=== PATIENT | female | born 1985 | race Caucasian/White ===

== ENCOUNTER → 2017-12-16 | Outpatient (CLI) | payer OTHER ==
[2017-12-16 12:58] LABS: HCT 33.4 % (34.0-46.0); HGB 11.5 gm/dL (11.4-16.0); MCH 28.3 pg (25.0-35.0); MCHC 34.6 g/dL (31.0-37.0); MCV 81.8 fL (80.0-100.0); Mean Platelet Volume 7.3; Platelet Count 241 k/uL (150-450); RBC 4.09 m/uL (3.80-5.40); WBC 8.4 k/uL (3.8-10.6)
[2017-12-16 13:12] LABS: Glucose 72 mg/dL (74-99)
--- NOTE | 2017-12-16 16:05 | US ---
EXAMINATION TYPE: Transabdominal DATE OF EXAM: 10/29/17 COMPARISON: NONE CLINICAL HISTORY: 32-year-old female Z36 CONFIRM DATES. Dates. No cramping or spotting. EXAM PERFORMED: Transabdominal (TA) FINDINGS: EXAM MEASUREMENTS: GESTATIONAL AGE / DATING Dates by LMP: (11 weeks/3 days) EDC: 07/04/2018 Dates by Current Scan for: (11 weeks/5 days) EDC: 07/02/2018 MATERNAL ANATOMY Uterus: 13.2 x 8.6 x 8.9 cm Right Ovary: 2.9 x 2.4 x 1.6 cm Left Ovary: 2.7 x 1.5 x 1.6 cm Post CDS / Adnexa: no free fluid Presence of free fluid: no Presence of corpus luteal cyst: right ovarian hypoechoic lesion = 1.5 x 1.3 x 1.2 cm Presence of subchorionic bleed: no GESTATION / SURVEY CRL: 5.0 cm (11 weeks/5 days) MSD: seen, not measured Yolk Sac (normal less than 6mm): 4.9 mm Heart Rate: 146 bpm Rhythm: Normal IUP: Viable IUP Nuchal Translucency 10-14wks (normal less than 3mm): 1 mm Date of LMP: 09/27/2017, Beta HcG (if available): Not available at this time Single live IUP measuring 11 weeks 5 days. IMPRESSION: 1. Single live intrauterine with estimated gestational age of 11 weeks 3 days by LMP. [facility] ultrasound biometry is concordant (11 weeks 5 days) by crown-rump length measurements. 2. Complete survey recommended at 18-20 weeks.
== END | disposition home or self-care (01) ==
LOC: RADUSWWP 12:27
PROVIDERS: ATTEND Obstetrics & Gynecology
DX: Z36.9 Encounter for antenatal screening, unspecified (principal)
CPT/HCPCS: 76801; 76813; 82565; 82947; 85027; 86762; 86780; 86850; 86900; 86901; 87340

== ENCOUNTER 2018-06-21 07:39 | Outpatient (CLI) | payer OTHER ==
[2018-06-21 10:35] VITALS: BP 116/72; PULSE 82; RESP 18; TEMP 97.5
--- NOTE | 2018-06-21 11:37 | P.MSEPDOC ---
Presenting Problems - Arrival Data Date of Arrival on Unit: 06/21/18 Time of Arrival on Unit: 07:39 Mode of Transport: Ambulatory - Complaint OB-Reason for Admission/Chief Complaint: Possible Onset of Labor Comment: contractions every 2-3 min, onset Medical History - Information : 5 Para: 3 Term: 3 : 0 Abortions: Spontaneous or Elective: 0 Number of Living Children: 3 - Gestational Age Gestational Age by SADIE (wks/days): 38 Weeks and 1 Days Review of Systems - Review of Systems Constitutional: No problems Breast: No problems ENT: No problems Cardiovascular: No problems Respiratory: No problems Gastrointestinal: No problems Genitourinary: No problems Musculoskeletal: No problems Neurological: No problems Skin: No problems Vital Signs - Temperature Temperature: 97.5 F Temperature Source: Temporal Artery Scan - Pulse Right Pulse Oximetery Pulse Rate: 82 Pulse Assessment Method: Pulse Oximetry - Respirations Respiratory Rate: 18 Oxygen Delivery Method: Room Air O2 Sat by Pulse Oximetry: 100 - Blood Pressure Right Arm Blood Pressure: 116/72 Blood Pressure Mean: 86 Blood Pressure Source: Automatic Cuff Medical Screen Scoring (Pre) - Cervical Exam Dilation: 1-3 cm = 1 Effacement: More than 50% = 2 Membranes: Intact - Uterine Contractions Frequency: > or = 36 weeks =2 Duration: > 40 seconds = 2 Intensity: N/A - Maternal Vital Signs Maternal Temperature: N/A Maternal Blood Pressure: N/A Signs of Preeclampsia: N/A Maternal Respirations: N/A - Pain Assessment Pain Location and Character: Abdomen Pain Scale Used: Numeric (1 - 10) Pain Intensity: 3 Pain Management Goal: 3 Pain Description: *Acute, Cramping Pain Radiation Location: none Pain Frequency: Intermittent Pain Duration: 9 Pain Duration Units: Hours Pain Behavior: Vocalization Effects of Pain: none Pain Aggravating Factors: Changing Position Pharmacological Interventions: Discuss Pain Med Options Non-Pharmacological Interventions: Reduce Environmental Stimuli - Maternal Trauma Maternal Trauma: N/A - Assessment Baseline FHR: 115 Heart Rate - NICHD Category: Category I (Normal) = 0 NST: Reactive Position: N/A Station: N/A - Total Score Total Score (Pre): 7 - Level of Risk Level of Risk: Medium (6-9) Physician Notification (Pre) - Physician Notified Physician Notified Date: 06/21/18 Physician Notified Time: 09:40 Physician/Practitioner Notifed:: Dr Hernandez Spoke With: Dr Hernandez New Order Received: Yes - Notification Comment Comment: rechecked pts cervix after an hour, cervix remains the same, pt stayed for an additional hour and cervix still remains the same. pt discharged home with instructions to return if contractions become stronger. Pt verbalizes understanding of all instructions. Disposition - Disposition OB Disposition: Discharge to home Discharge Date: 06/21/18 Discharge Time: 10:20 I agree with the RN Medical Screening Exam: Yes Risk & Benefit of care provided described in d/c instruction: Yes Diagnosis: FALSE LABOR AT OR AFTER 37 COMPLETED WEEKS OF GESTATION
== END 2018-06-21 10:20 | disposition home or self-care (01) ==
LOC: FBPOP 07:39
PROVIDERS: ATTEND Obstetrics & Gynecology
DX: O47.1 False labor at or after 37 completed weeks of gestation (principal); Z3A.38 38 weeks gestation of pregnancy
CPT/HCPCS: 59025; G0463; 99213

== ENCOUNTER 2018-06-30 05:47 | Inpatient (IN) | payer OTHER ==
[2018-06-30] MEDS ORDERED: OXYTOCIN 10 UNIT/ML 1 ML VIAL IM PRN (05:57)
[2018-06-30] MEDS ORDERED: METHYLERGONOVINE 0.2 MG/ML 1 ML AMP IM PRN (05:57)
[2018-06-30] MEDS ORDERED: TERBUTALINE 1 MG/ML VIAL SQ PRN (05:57)
[2018-06-30] MEDS ORDERED: LIDOCAINE 1% INJ 10MG/ML (20 ML MDV) SQ PRN (05:57)
[2018-06-30] MEDS ORDERED: CARBOPROST TROMETHAMINE 250 MCG/ML 1 ML AMP IM PRN (05:57)
[2018-06-30] MEDS ORDERED: AMPICILLIN 2,000 MG in SODIUM CHLORIDE 0.9% 100 ML IVPB ONE (06:00)
[2018-06-30 06:02] VITALS: BMI 24.5
--- NOTE | 2018-06-30 06:06 | P.HPOB ---
History of Present Illness H&P Date: 06/30/18 Chief Complaint: Elective induction of labor. This patient is a pleasant 33-year-old 5 para 3 female estimated date of confinement 07/04/2018 estimated gestational age 39-3/7 weeks who presents to labor and delivery for elective induction of labor due to history of precipitous delivery with previous . care has been uncomplicated. With her second baby she delivered went in route to the hospital and therefore we have discussed elective delivery after 39 weeks this . Review of Systems Gastrointestinal: Reports heartburn Genitourinary: Reports Menstruation: Reports amenorrhea Past Medical History Past Medical History: Asthma Additional Past Medical History / Comment(s): Past obstetrical history: Patient said 3 normal spontaneous vaginal deliveries. The second vaginal delivery was complicated by delivery in the ambulance prior to arrival at the hospital. History of Any Multi-Drug Resistant Organisms: None Reported Additional Past Surgical History / Comment(s): Patient's had a D&C. Past Anesthesia/Blood Transfusion Reactions: No Reported Reaction Past Psychological History: No Psychological Hx Reported Smoking Status: Former smoker Past Alcohol Use History: None Reported Past Drug Use History: None Reported - Past Family History Mother Family Medical History: No Reported History Medications and Allergies Home Medications Medication Instructions Recorded Confirmed Type Hxg-Tfvq-Yioqt Acid 1 each PO DAILY 12/07/13 06/30/18 History [-U Capsule] Allergies Allergy/AdvReac Type Severity Reaction Status Date / Time No Known Allergies Allergy Verified 06/30/18 05:56 Exam Intake and Output 06/29/18 06/29/18 06/30/18 14:59 22:59 06:59 Other: Weight 64.864 kg - OBG Physical Exam Abdomen: bowel sounds normal, no diffuse tenderness, no bruit present, no guarding noted, no hepatomegaly, no splenomegaly, no mass Vulva: both: normal Vagina: normal moisture, no discharge Cervix: no lesion (Cervix in the office was 3 cm dilated.), no discharge Uterus: enlarged (Fundal height is consistent with a term .) Results blood work shows she is O+, rubella immune, RPR nonreactive, hepatitis B negative, Glucola was normal, group B strep was negative but she has a history of a positive with her first . Ultrasounds have been normal. Assessment and Plan Assessment: This is a pleasant 33-year-old 5 para 3 female 39-3/7 weeks gestation who is admitted to labor and delivery for induction of labor secondary to history of precipitous delivery outside of the hospital with a previous . Patient is a history of positive strep with a previous therefore will receive IV antibiotics, Pitocin induction of labor and we anticipate vaginal delivery. (1) 39 weeks gestation of Current Visit: Yes Status: Acute Code(s): Z3A.39 - 39 WEEKS GESTATION OF SNOMED Code(s): 85630524 (2) Elective induction of labor planned Current Visit: Yes Status: Acute Code(s): FHM0198 - SNOMED Code(s): 413955798
[2018-06-30] MEDS: LACTATED RINGERS 1,000 ML IV SCH ×2 (06:15→22:08)
[2018-06-30] MEDS: OXYTOCIN 20 UNITS/1000 ML NS 1,000 ML IV SCH ×2 (06:18→08:39)
[2018-06-30 06:22] LABS: Basophils % (A) 0 %; Eosinophils # (A) 0.1 k/uL (0-0.7); Eosinophils % (A) 1 %; HCT 30.2 % (34.0-46.0); Lymphocytes % (A) 25 %; MCH 25.3 pg (25.0-35.0); MCHC 33.1 g/dL (31.0-37.0); MCV 76.4 fL (80.0-100.0); Mean Platelet Volume 8.7; Monocytes # (A) 0.4 k/uL (0-1.0); Monocytes % (A) 5 %; Neutrophils # (A) 5.4 k/uL (1.3-7.7); Neutrophils % (A) 68 %; Platelet Count 201 k/uL (150-450); RBC 3.95 m/uL (3.80-5.40)
[2018-06-30] MEDS: AMPICILLIN 1,000 MG in SODIUM CHLORIDE 0.9% 50 ML IVPB SCH ×2 (10:35→22:08)
[2018-06-30] MEDS ORDERED: diphenhydrAMINE 25 MG CAP PO PRN (11:33)
[2018-06-30] MEDS ORDERED: ACETAMINOPHEN TAB 325 MG TAB PO PRN (11:33)
[2018-06-30] MEDS ORDERED: BENZOCAINE/MENTHOL SPRAY 1 GM/SPRAY AEROSOL TOPICAL PRN (11:33)
[2018-06-30] MEDS ORDERED: LANOLIN CREAM 5 GM TUBE TOPICAL PRN (11:33)
[2018-06-30] MEDS ORDERED: diphenhydrAMINE 50 MG CAP PO PRN (11:33)
[2018-06-30] MEDS ORDERED: HYDROCORTISONE 2.5% RECTAL CREAM 30 GM TUBE RECTAL PRN (11:33)
[2018-06-30] MEDS ORDERED: IBUPROFEN 600 MG TAB PO PRN (11:33)
[2018-06-30] MEDS ORDERED: ZOLPIDEM 5 MG TAB PO PRN (11:33)
[2018-06-30] MEDS ORDERED: SIMETHICONE 80 MG CHEWABLE PO PRN (11:33)
[2018-06-30] MEDS ORDERED: diphenhydrAMINE 50 MG/ML 1 ML VIAL IVP PRN ×2 (11:33)
[2018-06-30] MEDS ORDERED: WITCH HAZEL 1 EACH MED..PAD TOPICAL PRN (11:33)
[2018-06-30] MEDS ORDERED: OXYTOCIN 20 UNITS/1000 ML NS 1,000 ML IV SCH (11:45)
[2018-06-30] MEDS ORDERED: INFLUENZA VACCINE (6 MOS+) 60 MCG/0.5 ML SYRINGE IM ONE (12:14)
--- NOTE | 2018-06-30 17:40 | P.PROBDLV ---
Vaginal Delivery Note - . Vaginal Delivery Note: Normal spontaneous vaginal delivery viable male infant Apgars 8 and 9 at 1105 hrs. . Please see dictated H&P for intimate details of this patient's admission. Brief summary is a pleasant 23-year-old 5 para 4 female 39-3/7 weeks gestation admitted to labor and delivery for induction secondary to history of precipitous vaginal delivery outside of the hospital. Patient is admitted she is 3-4 cm dilated has artificial rupture membranes for clear fluid labor is induced with Pitocin per protocol. Patient does not request anything for pain control. Patient thereafter gets quickly to 7 cm and approximately 2 minutes later deliver spontaneously in bed in the presence of the nurse. This is a vigorous viable male Apgars are 8 and 9 delivery time was 1105 hours. The umbilical cord is doubly clamped and cut. It appears to be trivascular. Cord blood is obtained due to oh positive status. Placenta spontaneously delivered intact. Estimated blood loss is 100 mL. There is a first-degree posterior laceration which is repaired with 3-0 Vicryl usual fashion with local anesthetic. All counts are correct 3. There are no complications. and mother stable delivery room.
[2018-06-30 21:43] VITALS: RESP 16
[2018-06-30] MEDS: SENNOSIDES-DOCUSATE SODIUM 1 EACH TAB PO SCH (22:04)
[2018-07-01 03:59] VITALS: PULSE 74
--- NOTE | 2018-07-01 06:20 | P.PNOBGVD ---
Subjective - Subjective Patient reports: Reports appetite normal, Reports voiding normally, Reports pain well controlled, Reports ambulating normally : doing well Objective - Latest Vital Signs Latest vital signs: Vital Signs Temp Pulse Resp BP 07/01/18 00:00 98.4 F 74 16 105/63 06/30/18 20:00 97.7 F 65 16 108/72 06/30/18 17:00 97.9 F 76 17 98/60 06/30/18 13:25 98.0 F 72 17 120/67 06/30/18 12:53 71 16 123/79 06/30/18 12:27 65 16 108/63 06/30/18 12:10 67 17 114/70 06/30/18 11:52 63 16 119/73 06/30/18 11:37 67 17 121/64 06/30/18 11:21 98.0 F 76 16 113/59 Intake and Output 06/30/18 06/30/18 07/01/18 14:59 22:59 06:59 Intake Total 7.05 Output Total 200 100 Balance -192.95 -100 Intake: Intake, IV Titration 7.05 Amount Oxytocin 20 Units/1000 ml 7.05 Ns 1,000 ml @ 1 MILLIUNIT/MIN 3 mls/hr IV .Q24H JOCELINE Rx#:[id number] Output: Estimated Blood Loss 200 100 Other: # Voids 1 1 2 - Exam Lungs: bilateral: normal Chest: Normal S1, Normal S2 Extremities: Present: normal Abdomen: Present: normal appearance, soft Uterus: Present: normal, firm - Labs Labs: Abnormal Lab Results - Last 24 Hours (Table) 06/30/18 Range/Units 06:15 Hgb 10.0 L (11.4-16.0) gm/dL Hct 30.2 L (34.0-46.0) % MCV 76.4 L (80.0-100.0) fL Assessment and Plan Assessment: Post day #1. Patient is resting without complaints and wishes to go home. Vital signs are stable she's afebrile. Uterus is firm nontender and she is having normal lochia. My impression this is a normal course. Plan is to continue routine care discharge home later today. (1) 39 weeks gestation of Current Visit: Yes Status: Acute Code(s): Z3A.39 - 39 WEEKS GESTATION OF SNOMED Code(s): 72484917 (2) Elective induction of labor planned Current Visit: Yes Status: Acute Code(s): EDB9727 - SNOMED Code(s): 118044445
--- NOTE | 2018-07-01 06:24 | P.DS ---
Providers Date of admission: 06/30/18 05:47 Expected date of discharge: 07/01/18 Attending physician: Jaziel Benites Primary care physician: Stated None - Discharge Diagnosis(es) (1) 39 weeks gestation of Current Visit: Yes Status: Acute (2) Elective induction of labor planned Current Visit: Yes Status: Acute Hospital Course: Please see dictated H&P for intimate details of this patient's admission. Brief summary this is a pleasant 33-year-old 5 para 3 female 39-3/7 weeks gestation admitted to labor and delivery for induction of labor secondary to history of precipitous delivery. A she is admitted she is uncomplicated induction of labor quickly goes on have a vaginal delivery viable male infant. Please see dictated delivery note. day #1 patient without complaints wishes to go home. Patient's felt to be stable for discharge home follow up with me in 6 weeks. Procedures: Induction of labor and normal vaginal delivery Patient Condition at Discharge: Good Plan - Discharge Summary New Discharge Prescriptions: New Ibuprofen [Motrin] 600 mg PO Q6HR PRN #40 tab PRN Reason: Mild Pain Or Fever >= 100.5 No Action Mkm-Xmuz-Fvhyx Acid [-U Capsule] 1 each PO DAILY Discharge Medication List Vvr-Csdc-Bxoyq Acid [-U Capsule] 1 each PO DAILY 12/07/13 [ History] Ibuprofen [Motrin] 600 mg PO Q6HR PRN #40 tab 07/01/18 [Rx] Follow up Appointment(s)/Referral(s): Jaziel Benites MD [STAFF PHYSICIAN] - 08/11/18 10:45 am Patient Instructions/Handouts: Vaginal Delivery (DC) Activity/Diet/Wound Care/Special Instructions: No intercourse or anything per vagina for 6 weeks. Please call if any fever, chills, excessive vaginal bleeding, and/or abdominal pain.
[2018-07-01 07:19] LABS: Basophils % (A) 0 %; Eosinophils # (A) 0.1 k/uL (0-0.7); Eosinophils % (A) 1 %; HCT 27.7 % (34.0-46.0); HGB 9.4 gm/dL (11.4-16.0); Lymphocytes # (A) 1.9 k/uL (1.0-4.8); Lymphocytes % (A) 20 %; MCH 26.2 pg (25.0-35.0); MCHC 33.9 g/dL (31.0-37.0); MCV 77.4 fL (80.0-100.0); Mean Platelet Volume 8.7; Monocytes # (A) 0.4 k/uL (0-1.0); Monocytes % (A) 4 %; Neutrophils # (A) 6.7 k/uL (1.3-7.7); Neutrophils % (A) 73 %; Platelet Count 192 k/uL (150-450); RBC 3.58 m/uL (3.80-5.40); WBC 9.2 k/uL (3.8-10.6)
[2018-07-01 08:41] VITALS: BP 106/63; TEMP 98.3
[2018-07-01] MEDS: SENNOSIDES-DOCUSATE SODIUM 1 EACH TAB PO SCH (14:31)
== END 2018-07-01 13:45 | disposition home or self-care (01) | DRG 807 ==
LOC: 4FBP 05:47
PROVIDERS: ADMIT Obstetrics & Gynecology; ATTEND Obstetrics & Gynecology
PROC: 10E0XZZ Delivery of Products of Conception, External Approach (ICD-10-PCS; principal; 2018-06-30)
PROC: 0HQ9XZZ Repair Perineum Skin, External Approach (ICD-10-PCS; 2018-06-30)
PROC: 3E033VJ Introduction of Other Hormone into Peripheral Vein, Percutaneous Approach (ICD-10-PCS; 2018-06-30)
PROC: 10907ZC Drainage of Amniotic Fluid, Therapeutic from Products of Conception, Via Natural or Artificial Opening (ICD-10-PCS; 2018-06-30)
PROC: 3E02340 Introduction of Influenza Vaccine into Muscle, Percutaneous Approach (ICD-10-PCS; 2018-06-30)
DX: O70.0 First degree perineal laceration during delivery (principal); Z37.0 Single live birth; J45.909 Unspecified asthma, uncomplicated; O99.52 Diseases of the respiratory system complicating childbirth; Z23 Encounter for immunization; Z3A.39 39 weeks gestation of pregnancy; Z87.891 Personal history of nicotine dependence; Z79.899 Other long term (current) drug therapy
CPT/HCPCS: 85025; 86850; 86900; 86901; 90471; 90686

== ENCOUNTER 2018-09-15 06:05 | Day surgery (SDC) | payer OTHER ==
[2018-09-11 11:26] VITALS: BMI 22.3
--- NOTE | 2018-09-12 07:24 | P.HPOB ---
History of Present Illness H&P Date: 09/12/18 Chief Complaint: Requesting permanent sterilization This patient is a pleasant 33-year-old 5 para 4 female who presented to me for her visit and is requesting laparoscopic tubal cauterization for permanent sterilization. Patient and I discussed various methods of control including male sterilization, hormonal contraception, IUD and this is the method that she has chosen. Patient understands this is permanent she is done having children. Review of Systems Menstruation: Reports menses 1-7 days Past Medical History Past Medical History: Asthma Additional Past Medical History / Comment(s): NO CURRENT ASTHMA., RASH ON CHEST. , POST 06/30/19- BREAST FEEDING History of Any Multi-Drug Resistant Organisms: None Reported Additional Past Surgical History / Comment(s): D & C Past Anesthesia/Blood Transfusion Reactions: No Reported Reaction Past Psychological History: No Psychological Hx Reported Smoking Status: Former smoker Past Alcohol Use History: None Reported Additional Past Alcohol Use History / Comment(s): QUIT SMOKING SEPTEMBER 2017, SMOKED 1 PPD, SMOKED APPROX 10 YRS. Past Drug Use History: None Reported - Past Family History Mother Family Medical History: No Reported History Medications and Allergies Home Medications Medication Instructions Recorded Confirmed Type Pnv No.95/Ferrous Fum/Folic AC 1 each PO DAILY 09/11/18 09/11/18 History [ Multivitamin Tablet] Allergies Allergy/AdvReac Type Severity Reaction Status Date / Time No Known Allergies Allergy Verified 09/11/18 11:06 Exam - OBG Physical Exam Abdomen: bowel sounds normal, no diffuse tenderness, no bruit present, no guarding noted, no hepatomegaly, no splenomegaly, no mass Vulva: both: normal Vagina: normal moisture, no discharge Cervix: no lesion, no discharge Uterus: normal size, normal contour Assessment and Plan Assessment: This is a pleasant 33-year-old 5 para 4 female who is presenting for laparoscopic bilateral fallopian tube cauterization for permanent sterilization. Patient I discussed the surgery in detail including the risks of infection, bleeding, possible injury to bowel, bladder, vessels, and other organs, requiring other surgeries. Patient understands this procedure is considered permanent however there is a failure rate of approximately 5 per thousand procedures done. She understands if she does become she has a 50% chance of tubal or an ectopic . Patient also understands there are alternatives to the surgery and is considered elective. All the patient's questions are answered and a written consent is obtained. (1) Family planning Status: Acute Code(s): Z30.09 - ENCOUNTER FOR OTH GENERAL CNSL AND ADVICE ON CONTRACEPTION SNOMED Code(s): 202197790
[~2018-09-15 06:05] MED LIST: DEXAMETHASONE SOD PHOSPHATE 10 MG/ML 1 ML VIAL IV ONE; LACTATED RINGERS 1,000 ML IV SCH; LIDOCAINE 1% 20 ML VIAL (10MG/ML) FOR IV START INTRADERMA PRN; MIDAZOLAM (PF) 2 MG/2 ML VIAL IV PRN; ONDANSETRON 4 MG/2 ML VIAL IVP ONE; Pre Op ABX Message 1 EACH MISC MISCELLANE ONE
[2018-09-15 06:39] VITALS: TEMP 97.2
[2018-09-15] MEDS ORDERED: ONDANSETRON 4 MG/2 ML VIAL IVP ONE (06:50)
[2018-09-15] MEDS ORDERED: DEXAMETHASONE SOD PHOSPHATE 10 MG/ML 1 ML VIAL IV ONE (06:50)
[2018-09-15] MEDS ORDERED: PROPOFOL 10 MG/ML 20 ML VIAL IV ONE (07:21)
[2018-09-15] MEDS ORDERED: KETOROLAC 30 MG/ML 1 ML VIAL ONE (07:21)
[2018-09-15] MEDS ORDERED: LIDOCAINE 1% INJ 10MG/ML (20 ML MDV) ONE (07:21)
[2018-09-15] MEDS ORDERED: fentaNYL (PF) 50 MCG/ML 2 ML AMP ONE (07:21)
[2018-09-15] MEDS ORDERED: ROCURONIUM BROMIDE 10 MG/ML 10 ML VIAL IV ONE (07:21)
[2018-09-15] MEDS ORDERED: NEOSTIGMINE 1 MG/ML 10 ML VIAL ONE (07:21)
[2018-09-15] MEDS ORDERED: MIDAZOLAM 2 MG/2 ML VIAL ONE (07:21)
[2018-09-15] MEDS ORDERED: GLYCOPYRROLATE 0.2 MG/ML 2 ML VIAL ONE (07:21)
[2018-09-15] MEDS ORDERED: BUPIVACAINE (PF) 0.5% 30 ML VIAL SQ ONE ×3 (07:26→08:05)
--- NOTE | 2018-09-15 08:22 | P.OP ---
Date of Procedure: 09/15/18 Preoperative Diagnosis: Multi parity desires permanent sterilization Postoperative Diagnosis: Same Procedure(s) Performed: Laparoscopic bilateral fallopian tube cauterization. Anesthesia: GETA Surgeon: Jaziel Benites Estimated Blood Loss (ml): 10 IV fluids (ml): 5 Pathology: none sent Condition: stable Disposition: PACU Indications for Procedure: Please see dictated H&P for intimate details of this patient's admission. Brief summary this is a pleasant 33-year-old multigravida patient is presenting for laparoscopic bilateral fallopian tube cauterization for permanent sterilization. Patient and I discussed the surgery and alternatives. In this is the method she and her have chosen. She understands it is considered permanent however there is approximately 5 per thousand chance of failure and if she did become a 50% chance of tubal or ectopic . Patient understands that this surgery and apparently has risks including risks of infection, bleeding, possible injury bowel, bladder, vessels , and/or other organs. All the patient's questions are answered written consent is obtained. Operative Findings: This patient had a normal-appearing pelvis. Description of Procedure: This patient is taken to the operating room where she is laid in the supine position. She subsequent undergoes general endotracheal anesthesia without incident. With an adequate level of anesthesia was placed in the dorsal lithotomy position. Has a vaginal perineal abdominal prep and drape. Scalpels and taken and a 1 cm infraumbilical incision is made. A 10 mm bladed lists optical trocar is then placed directly into the peritoneal cavity. With peritoneal placement confirmed we then insufflated to 12 mm of carbon dioxide gas. Patient placed in Trendelenburg position. Proximally 2 finger breaths above the symphysis pubis a 5 mm incision is made and 5 mm trochars placed under direct visualization. Using blunt probe I visualize uterus tubes and ovaries. Using the bipolar cautery I then grasped the left fallopian tube approximately 4 cm from the cornual insertion and a 2 cm segment of tube is completely cauterized as demarcated by the volt meter similar technique is done on the right side with similar results. Knight inspection of the site is then done and good hemostasis is noted. The upper abdomen grossly appears normal. This point the procedure is ended. The lower trochars removed and excellent hemostasis is noted. Pneumoperitoneum was reduced and the upper trochars removed. The incisions are then closed using a 4-0 Vicryl on a interrupted fashion. Steri-Strips and sterile dressing applied and half percent Marcaine is infiltrated the incisions for postoperative pain control. Then good on below remove the acorn cannula and catheter. Patient is then awakened from anesthesia and taken recovery room in satisfactory condition. There are no complications. All counts are correct 3.
[2018-09-15] MEDS: HYDROmorphone 1 MG/ML 1 ML SYRINGE IVP ONE ×2 (08:29→08:36)
[2018-09-15] MEDS ORDERED: SODIUM CHLORIDE 0.9% 1,000 ML IV ONE (08:47)
[2018-09-15 09:27] VITALS: RESP 18
[2018-09-15 09:41] VITALS: BP 99/65; PULSE 50
== END 2018-09-15 10:13 | disposition home or self-care (01) ==
LOC: OR 06:05
PROVIDERS: ATTEND Obstetrics & Gynecology
DX: Z30.2 Encounter for sterilization (principal); Z87.09 Personal history of other diseases of the respiratory system; Z87.891 Personal history of nicotine dependence
CPT/HCPCS: 81025; 58670; J2250; J1100; J2710; J2405; J2001; J3010; J1885; J1170; J2704